=== PATIENT | male | born 1955 | race Asian ===

== ENCOUNTER → 2020-04-19 | Emergency (ER) | payer OTHER ==
[~2020-04-19] VITALS: Ht 167.6 cm; Wt 66.7 kg
[~2020-04-19] MED LIST: GLUXR500 PO; SAXA5TAB PO
[2020-04-19 16:30] VITALS: BP_SYST 142
--- NOTE | 2020-04-19 16:34 | NUR ---
PATIENT RETURED TO WAITING AREA PENDING BED AVAILABILITY
== END | disposition still patient (30) ==
LOC: SED 16:08
DX: R53.1 Weakness (principal); Z53.21 Procedure and treatment not carried out due to patient leaving prior to being seen by health care provider